=== PATIENT | female | born 1975 | race Two or more races ===

== ENCOUNTER 2019-01-24 16:07 | Outpatient (CLI) | payer BC | END 2019-01-24 23:59 | disposition home or self-care (01) | LOC: RAD 16:07 | PROVIDERS: ATTEND Family Medicine | DX: E04.1 Nontoxic single thyroid nodule (principal) | CPT/HCPCS: 71046 ==

== ENCOUNTER 2019-02-25 12:47 | Outpatient (CLI) | payer BC | END 2019-02-25 23:59 | disposition home or self-care (01) | LOC: US 12:47 | DX: E04.1 Nontoxic single thyroid nodule (principal) | CPT/HCPCS: 76942-TC; 88305-TC ==

== ENCOUNTER 2019-11-22 11:16 | Outpatient (CLI) | payer BC | END 2019-11-22 23:59 | disposition home or self-care (01) | LOC: CT 11:16 | PROVIDERS: ATTEND Family Medicine | DX: K04.7 Periapical abscess without sinus (principal) | CPT/HCPCS: 70486-TC ==

== ENCOUNTER 2020-10-24 08:25 | Emergency (ER) | payer OTHER, BC ==
[~2020-10-24] VITALS: Ht 157.5 cm; Wt 70.3 kg
[2020-10-24 08:42] VITALS: BP 160/104
--- NOTE | 2020-10-24 08:46 | NUR ---
[facility] [phone]
--- NOTE | 2020-10-24 09:36 | NUR ---
PATIENT A/OX4, DENIES SOB. NO DISTRESS NOTED. Patient discharged to home in stable condition. Written and verbal after care instructions given. Patient verbalizes understanding of instruction.
--- NOTE | 2020-10-24 09:37 | NUR ---
COVID SWAB SENT.
--- NOTE | 2020-10-25 02:03 | NUR ---
LAB CALLED REGARDING POSITIVE COVID RESULT.
== END 2020-10-24 09:37 | disposition home or self-care (01) ==
LOC: ER 08:27
DX: U07.1 COVID-19 (principal); I10 Essential (primary) hypertension
CPT/HCPCS: 99283; C9803; U0003

== ENCOUNTER 2022-10-22 19:01 | Inpatient (IN) | payer BC, OTHER ==
[~2022-10-22] VITALS: Ht 160 cm; Wt 74.8 kg
--- NOTE | 2022-10-22 19:20 | NUR ---
PT send by pmd for low hgb, 6.7 heavy menstrual period endorsed. C/O dizziness. PT A/OX4. Tolerating R/A well with no Resp distress. Connected pt to POX and monitor. Safety measures in place.
--- NOTE | 2022-10-22 19:40 | NUR ---
RAC #20G S/L BLOOD COLLECTED AND SENT TO LAB
--- NOTE | 2022-10-22 19:49 | NUR ---
COVID ANTIGEN SWAB COLLECTED AND SENT TO LAB
--- NOTE | 2022-10-22 19:50 | NUR ---
OFFERED PT URINE CUP, AWAITING URINE SAMPLE.
--- NOTE | 2022-10-22 20:23 | NUR ---
URINE COLLECTED AND SENT TO LAB
[2022-10-22 20:28] LABS: ALBUMIN 3.6 g/dL (3.4-5.0); BILIRUBIN,DIRECT 0.1 mg/dL (0.0-0.2); BILIRUBIN,TOTAL 0.2 mg/dL (0.2-1.0); CREATININE 0.7 mg/dL (0.6-1.3); POTASSIUM 3.5 mmol/L (3.5-5.1); TOTAL PROTEIN, SERUM 7.2 g/dL (6.4-8.2)
[2022-10-22 20:43] LABS: BASOPHILS # (AUTO) 0.1 K/uL (0.0-0.2); BASOPHILS % (AUTO) 1.2 % (0.0-2.0); EOSINOPHILS % (AUTO) 0.9 % (0.0-6.0); HEMATOCRIT 23 % (33-45); LYMPHOCYTES # (AUTO) 1.5 K/uL (0.8-4.8); LYMPHOCYTES % (AUTO) 19.5 % (20.0-44.0); MEAN CORPUSCULAR HGB CONC 31 g/dl (31.0-36.0); MEAN CORPUSCULAR VOLUME 67 fL (82-100); MONOCYTES # (AUTO) 0.6 K/uL (0.1-1.30); MONOCYTES % (AUTO) 8.2 % (2.0-12.0); NEUTROPHILS # (AUTO) 5.4 K/uL (1.8-8.9); NEUTROPHILS % (AUTO) 70.2 % (43.0-81.0); PLATELET COUNT (AUTO) 615 K/uL (150-450); RED BLOOD CELL COUNT(AUTO) 3.39 MIL/uL (4.0-5.2); WHITE BLOOD COUNT (AUTO) 7.7 K/uL (4.3-11.0)
--- NOTE | 2022-10-22 20:56 | NUR ---
HGB 7.0
--- NOTE | 2022-10-22 21:10 | NUR ---
PT SIGNED BLOOD TRANSFUSION CONSENT FORM; VERBALIZED UNDERSTANDING
--- NOTE | 2022-10-22 21:15 | NUR ---
DR LINCOLN ON THE PHONE WITH DR RODRIGUEZ, GEOSPATIAL INFORMATION TECHNOLOGIST
[2022-10-22] MEDS ORDERED: ONDANSETRON HCL/PF 4 MG/2 ML VIAL IVP PRN (21:30)
[2022-10-22] MEDS ORDERED: HYDROCODONE/APAP 5/325MG TABLET PO PRN (21:30)
[2022-10-22] MEDS ORDERED: MAGNESIUM HYDROXIDE 30 ML UDC PO PRN (21:30)
[2022-10-22] MEDS ORDERED: Z GUARD REMEDY 4 OZ OINT TP PRN (21:30)
[2022-10-22] MEDS ORDERED: ACETAMINOPHEN 325 MG TABLET PO PRN (21:30)
[2022-10-22] MEDS ORDERED: MAG HYDROX/AL HYDROX/SIMETH 30 ML UDC PO PRN (21:30)
[2022-10-22 21:51] LABS: BILIRUBIN,URINE NEGATIVE (NEGATIVE); COLOR,URINE YELLOW (YELLOW); LEUKOCYTE ESTERASE ,URINE NEGATIVE (NEGATIVE); NITRITE, URINE NEGATIVE (NEGATIVE); PROTEIN,URINE NEGATIVE (NEGATIVE); UGLUCOSE NEGATIVE (NEGATIVE); UROBILINOGEN,URINE 0.2 EU/dL (0.2)
--- NOTE | 2022-10-22 21:51 | NUR ---
Bed given 319
--- NOTE | 2022-10-22 22:05 | NUR ---
INITIATED RBC @70 ML/HR. VSS. WILL MONITOR FOR ADVERSE REACTIONS
--- NOTE | 2022-10-22 22:09 | NUR ---
US TECH AT PT'S BEDSIDE
--- NOTE | 2022-10-22 22:12 | NUR ---
REPORT GIVEN TO SOREN KAUFFMANLOLA
--- NOTE | 2022-10-22 22:25 | NUR ---
MS LOAN OFFICER ASSISTANT NOTES RECEIVED FROM ER VIA STEVEN THIS 47 Y.O.FEMALE,ALERT,ORIENTED X4 ACCOMPANIED BY ,WITH CHIEF COMPLAINTS OF DIZZINESS AND GENERALIZED WEAKNESS X3 DAYS,SHES ON HER MONTHLY PERIOD,DIAGNOSIS OF ANEMIA, HGB-7.0/23,1 UNIT OF PRBC INFUSING ON RIGHT ARM VIA IV PUMP,STARTED IN ER.WILL CONTINUE TO MONITOR FOR ADVERSE REACTION.DENIES PAIN,NO SOB,NO SKIN ISSUES.CALL LIGHT IN REACH,NEEDS ANTICIPATED.
--- NOTE | 2022-10-22 22:34 | NUR ---
PATIENT TRANSFERRED, VSS. Addendum: 10/22/22 at 2237 by AL UNDER ACLS PROTOCOL
[2022-10-22 22:35] VITALS: BP 131/94
[2022-10-22 22:37] LABS: BACTERIA,URINE None seen /HPF (None Seen); RBC,URINE 51-80 /HPF (0-2); SQUAMOUS EPITHELIAL CELL,UR 0-2 /HPF (None Seen); WBC,URINE 0-2 /HPF (0-3)
[2022-10-22 22:45] VITALS: BP 131/94
[2022-10-23 01:25] VITALS: BP 131/86
--- NOTE | 2022-10-23 01:25 | NUR ---
MS RN NOTES BLOOD TRANSFUSION WITH 1U PRBC COMPLETED.NO BLOOD TRANSFUSION REACTION NOTED.NS FLUSHING DONE.VITAL SIGNS STABLE.DENIES DIZZINESS THIS TIME.
[2022-10-23 04:22] LABS: BAND % (MANUAL) 1 % (0.0-5.0); LYMPHOCYTES % (MANUAL) 16 % (16-48); MONOCYTES % (MANUAL) 10 % (0-11.0); NEUTROPHILS % (MANUAL) 73 (42-76)
[2022-10-23 05:50] LABS: BASOPHILS # (AUTO) 0.1 K/uL (0.0-0.2); BASOPHILS % (AUTO) 1.3 % (0.0-2.0); EOSINOPHILS % (AUTO) 0.6 % (0.0-6.0); HEMATOCRIT 27 % (33-45); HEMOGLOBIN 8.4 g/dL (11.5-14.8); LYMPHOCYTES # (AUTO) 1.5 K/uL (0.8-4.8); LYMPHOCYTES % (AUTO) 22.8 % (20.0-44.0); MEAN CORPUSCULAR HGB CONC 31 g/dl (31.0-36.0); MEAN CORPUSCULAR VOLUME 70 fL (82-100); MONOCYTES # (AUTO) 0.6 K/uL (0.1-1.30); NEUTROPHILS # (AUTO) 4.3 K/uL (1.8-8.9); NEUTROPHILS % (AUTO) 66.3 % (43.0-81.0); PLATELET COUNT (AUTO) 557 K/uL (150-450); RED BLOOD CELL COUNT(AUTO) 3.84 MIL/uL (4.0-5.2); WHITE BLOOD COUNT (AUTO) 6.5 K/uL (4.3-11.0)
[2022-10-23 06:10] LABS: CALCIUM, SERUM 7.9 mg/dL (8.5-10.1); CREATININE 0.6 mg/dL (0.6-1.3); MAGNESIUM 2.1 mg/dL (1.8-2.4); PHOSPHORUS 2.9 mg/dL (2.5-4.9); POTASSIUM 3.4 mmol/L (3.5-5.1)
[2022-10-23 06:29] LABS: THYROID STIMULATING HORMONE 2.926 uIU/mL (0.358-3.74)
--- NOTE | 2022-10-23 06:36 | NUR ---
MS RN NOTES LATEST H/H-8.02/19,PATIENT AWARE.NORMAL MENSTRUAL FLOW AT THE MOMENT
--- NOTE | 2022-10-23 06:38 | NUR ---
MS RN NOTES ON BED AWAKE,ALERT,ORIENTED X4,NO PAIN,H/H IMPROVED POST 1 UNIT OF PRBC.POSSIBLE GYNE CONSULT.CALL LIGHT IN REACH,NEEDS ATTENDED.
--- NOTE | 2022-10-23 07:20 | NUR ---
MS RN RECEIVED PATIENT ON BED A/O X4. NOT IN ANY FORM OF DISTRESS, ON ROOM AIR. NO SOB NOTED. S/P IU OF PRDC GIVEN., HGB IMPROVED WNR. DENIES PAIN. CALL LIGHT WITHIN REACH, WILL MONITOR PATIENT.
[2022-10-23] MEDS ORDERED: PANTOPRAZOLE 40 MG TABLET.DR PO SCH (07:30)
[2022-10-23 08:00] VITALS: BP 135/83
[2022-10-23] MEDS ORDERED: AMLO5TAB4 PO (08:06)
[2022-10-23] MEDS ORDERED: FERR325T23 PO (08:06)
[2022-10-23] MEDS ORDERED: ASCO500C17 PO (08:06)
[2022-10-23] MEDS ORDERED: PROGESTERONE 100 MG PO SCH (09:00)
--- NOTE | 2022-10-23 09:30 | NUR ---
MS RN WAS SEEN BY TRINI SANCHEZ, WITH DISCHARGE ORDER FOR TODAY AND HAVE FOLLOW UP WITH DR. RODRIGUEZ O/P.
[2022-10-23] MEDS ORDERED: POTASSIUM CHLORIDE 20 MEQ TAB.PRT.SR PO SCH (10:00)
[2022-10-23 10:57] LABS: FERRITIN 5 ng/mL (8-388)
[2022-10-23] MEDS ORDERED: PROG100C15 PO (11:08)
[2022-10-23 12:08] LABS: IRON, SERUM 31 ug/dl (50-175); TOTAL IRON BINDING CAPACITY 451 ug/dl (250-450)
[2022-10-23] MEDS ORDERED: SOD FERRIC GLUC 125 MG in IV NS 0.9% 100 ML IV SCH (14:00)
--- NOTE | 2022-10-23 16:30 | NUR ---
MS RN PATIENT WENT HOME WITH . DISCHARGE INSTRUCTION GIVEN, PRESCRIPTION SENT TO PHARMACY. ALL NEEDS ATTENDED. NO DISTRESS NOTED.
== END 2022-10-23 16:30 | disposition home or self-care (01) | DRG 760 ==
LOC: ER 19:04 → TELE 22:05 → MED 22:37
PROVIDERS: ADMIT Registered Nurse; ATTEND Nurse Practitioner Family
PROC: 30233N1 Transfusion of Nonautologous Red Blood Cells into Peripheral Vein, Percutaneous Approach (ICD-10-PCS; principal; 2022-10-22)
DX: N83.202 Unspecified ovarian cyst, left side (principal); D62 Acute posthemorrhagic anemia; D25.9 Leiomyoma of uterus, unspecified; I10 Essential (primary) hypertension; N83.201 Unspecified ovarian cyst, right side; R93.89 Abnormal findings on diagnostic imaging of other specified body structures; N93.9 Abnormal uterine and vaginal bleeding, unspecified; Z20.822 Contact with and (suspected) exposure to COVID-19
CPT/HCPCS: 36415; 76856-TC; 80048-TC; 80076-TC; 81001; 82728-TC; 83540-TC; 83735-TC; 84100-TC; 84443-TC; 84702-TC; 84703-TC; 85025-TC; 85730-TC; 86850-TC; 87081-TC; 87086-TC; C9803; G0378; J2916; J7030; J7050; P9016